=== PATIENT | male | born 1990 | race Caucasian/White ===

== ENCOUNTER 2023-01-06 13:40 | Emergency (ER) | payer SELFPAY ==
--- NOTE | ~2023-01-06 | XR_ITS ---
XR hand LT min 3V 01/06/2023 16:26 INDICATION: Left hand pain PROCEDURE: 4 views left hand COMPARISON: No prior studies for comparison. FINDINGS: Fracture, dislocation or subluxation is not identified. The soft tissues appear within norm al limits. No foreign bodies are identified. IMPRESSION: 1: NO ACUTE BONE OR JOINT ABNORMALITY IDENTIFIED. Reviewed, dictated and finalized at location B. [facility] [employer] UP [employer]PER[employer]
[2023-01-06 13:42] VITALS: BP 136/110; PULSE 88; RESP 20; TEMP 36.3; O2SAT 99
--- NOTE | 2023-01-06 16:11 | ED.GENADULT ---
HPI - General Adult General Chief complaint: Wound/Laceration Stated complaint: laceration Time Seen by Provider: 01/06/23 15:34 History of Present Illness HPI narrative: 32-year-old male presenting to the emergency department for evaluation of a laceration to palmar surface of his left hand. Related Data Allergies Allergy/AdvReac Type Severity Reaction Status Date / Time No Known Allergies Allergy Verified 01/06/23 13:40 Review of Systems Review of Systems: All systems reviewed & are unremarkable except as noted in HPI and below Exam Narrative: APPEARANCE: Well appearing, no pain, no distress, well-nourished. HEAD: normocephalic, atraumatic. EYES: PERRLA/EOMI, conjunctivae clear. NOSE: Normal no drainage EARS:TMS clear with good light reflex. THROAT: Pharynx clear, no exudate. NECK: Supple. No adenopathy, no masses. RESPIRATORY: Airway patent, respirations nonlabored. Clear to auscultation bilaterally, no rales, rhonchi, wheezing. CARDIOVASCULAR: Regular rate and rhythm without murmurs rubs or gallops. ABDOMINAL: Soft, nontender, nondistended, normal bowel sounds MUSCULOSKELETAL: Moves all extremities. Strength/ROM intact, No edema, No calf tenderness. NEURO: Alert. Cranial nerves II through XII intact. grossly intact SKIN: laceration to the palmar surface of the left hand Course Course Emergency Course: 32-year-old male presenting to the ED for evaluation of a laceration to his left hand. X-rays were negative for foreign bodies. Patient's hand laceration was repaired as described in the procedure note. tetanus was updated. Patient was comfortable the plan for discharge and close follow-up. Vital Signs Vital signs: Vital Signs Temperature 97.4 F L 01/06/23 13:42 Pulse Rate 88 01/06/23 13:42 Respiratory Rate 20 01/06/23 13:42 Blood Pressure 136/110 H 01/06/23 13:42 Pulse Oximetry 99 01/06/23 13:42 Oxygen Delivery Room Air 01/06/23 13:42 Temperature 97.4 F L 01/06/23 13:42 Pulse Rate 88 01/06/23 13:42 Respiratory Rate 20 01/06/23 13:42 Blood Pressure 136/110 H 01/06/23 13:42 Pulse Oximetry 99 01/06/23 13:42 Oxygen Delivery Room Air 01/06/23 13:42 Procedures Laceration Laceration 1: Site: upper extremity Side (If applicable): left Size (cm): 1 Description: linear and flap Depth: simple, single layer Local Anesthetic: lidocaine 1% Amount of anesthesia used (mL): 2 Pre-repair: wound explored and irrigated ====== Skin Level ====== ====== Subcutaneous Layer ====== ====== Muscle Layer ====== ====== Tendon Layer ====== Medical Decision Making Vital Signs Vital Signs: Vital Signs Temperature 97.4 F L 01/06/23 13:42 Pulse Rate 88 01/06/23 13:42 Respiratory Rate 20 01/06/23 13:42 Blood Pressure 136/110 H 01/06/23 13:42 Pulse Oximetry 99 01/06/23 13:42 Oxygen Delivery Room Air 01/06/23 13:42 Temperature 97.4 F L 01/06/23 13:42 Pulse Rate 88 01/06/23 13:42 Respiratory Rate 20 01/06/23 13:42 Blood Pressure 136/110 H 01/06/23 13:42 Pulse Oximetry 99 01/06/23 13:42 Oxygen Delivery Room Air 01/06/23 13:42 Discharge Plan Discharge Clinical Impression: Laceration Patient Disposition: Home, Self-Care Condition: Stable Instructions: Antibiotic Form, Care For Your Stitches (ED), Laceration (ED) Additional Instructions: Sutures need to be removed in 7-10 days. Have close follow-up with your primary care physician. If you have any worsening symptoms then please call or return to the emergency department. Follow-up/Referrals: PHYSICIAN NOT ON STAFF,NONSTAFF [Non-Staff] -
[2023-01-06] MEDS: TETANUS,DIPHTHERIA,AC PERTUSSIS ADULT (0.5 ML) BOOSTRIX IM (16:26)
[2023-01-06] MEDS: LIDOCAINE HCL 1% LOCAL INJ 10 ML VIAL INFILTRATE (16:51)
== END 2023-01-06 17:03 | disposition home or self-care (01) ==
PROVIDERS: Emergency Provider Emergency Medicine
DX: S61.412A Laceration without foreign body of left hand, initial encounter (principal); Z23 Encounter for immunization; W25.XXXA Contact with sharp glass, initial encounter
CPT/HCPCS: 12001; 73130; 90471; 90715; 99283